=== PATIENT | male | born 1960 | race Hispanic/Latino ===

== ENCOUNTER 2017-07-31 10:28 | Inpatient (IN) | payer BC ==
[2017-07-31 10:34] VITALS: BMI 23.5
--- NOTE | 2017-07-31 10:34 | EDPD ---
HPI Stroke - General Time Seen by Provider: 07/31/17 10:33 - History of Present Illness Narrative History of Present Illness (Free Text): 07/31/17 10:35 57yoM, hx of myeloproliferative d/o with bone marrow transplant, swife states she isn't quite sure but feels since 7am - slurred speech and otherwise no n/v/ pulliam/dizziness/sob/chest pain/abdomen pain/loss of limb or bowel or bladder function. pt per had a fall prior to episode of speech change and she isn' t quite sure of head injury. 07/31/17 10:42 07/31/17 10:51 07/31/17 12:26 Onset:: This morning Timing: Currently Symptomatic Context: Sitting Associated Symptoms: Dysarthria Exacerbated by: Nothing Relieved by: Nothing rTPA Inclusion/Exclusion - Refusal of Treatment Patient Refused Treatment: No - Inclusion Criteria for Altepase Patient is 18 years or Older: Yes The Clinical Diagnosis of Ischemic Stroke That is Causing a Potentially Disabling Neurological Deficit: Yes Time of Onset is Well Established to be Less Than 270 Minute Before Treatment Would Begin: No Risk/Benefit Discussed With Patient/Family Member Present: Yes - Exclusion Criteria for Altepase Uncontrolled Hypertension at Time of Treatment (Systolic BP above 185 or Diastolic BP above 110 mmHg): Yes Known Bleeding Diathesis Including but Not Limited to: Platelets Below 100,000/ mm,PTT Above 40 sec After Heparin Use, Current Use of Oral Anitcoagulant With INR Greater Than 1.7 or PT Greater Than 15 secs: No Evidence of an Intracranial Hemorrhage: No Evidence of Major Acute Infarct With Signs Greater Than 1/3 MCA Territory: No Suspicion of Subarachnoid Hemorrhage on Pretreatment Evaluation Even if CT Head Negative For Hemorrhage: No Past Medical History - Provider Review Nursing Documentation Reviewed: Yes - Travel History Have you recently traveled outside [place] w/in the past 3 mons?: No - Infectious Disease Hx of Infectious Diseases: None - Cardiac Hx Cardiac Disorders: No - Pulmonary Hx Respiratory Disorders: No - Neurological Hx Neurological Disorder: No - HEENT Hx HEENT Disorder: No - Renal Hx Renal Disorder: No - Endocrine/Metabolic Hx Endocrine Disorders: No - Hematological/Oncological Hx Blood Disorders: No - Integumentary Hx Dermatological Disorder: No - Musculoskeletal/Rheumatological Hx Falls: No (12 yrs ago) - Gastrointestinal Other/Comment: 60 lb weight loss unintentional and intentional in 1 yr, started loosing weight unexplained about a yr ago then changed his eating habits and lost some more - Genitourinary/Gynecological Hx Genitourinary Disorders: No - Psychiatric Hx Substance Use: Yes (occasionally smokes pot) - Surgical History Hx Orthopedic Surgery: Yes (knee b/l) Other/Comment: at 16 yrs old pt had right knee sx for torn cartiladge and has nerve damage, at 42 yrs old shattered left knee in a fall has pins and plates - Anesthesia Hx Anesthesia: No Hx Anesthesia Reactions: No Hx Malignant Hyperthermia: No - Suicidal Assessment Feels Threatened In Home Enviroment: No Family/Social History - Family/Social History Family History: Non-Contributory Allergies/Home Meds Allergies/Adverse Reactions: Allergies No Known Allergies Allergy (Verified 08/08/14 23:27) Review of Systems - Review of Systems Constitutional: Normal Eyes: Normal ENT: Normal Respiratory: Normal Cardiovascular: Normal Gastrointestinal: Normal Genitourinary Male: Normal Musculoskeletal: Normal Skin: Normal Neurological: Speech Changes Endocrine: Normal Hemo/Lymphatic: Normal Psychiatric: Normal ED Stroke Physical Exam Vital Signs Reviewed: Yes Appearance: Positive for: Well-Appearing, Non-Toxic, Comfortable Pain Distress: None Mental Status: Positive for: Alert and Oriented X 3 - Systems Exam Head: Present: Atraumatic, Normocephalic Pupils: Present: PERRL Extroacular Muscles: Present: EOMI Conjunctiva: Present: Normal Ears: Present: Normal Mouth: Present: Moist Mucous Membranes Pharnyx: Present: Normal Nose (External): Present: Atraumatic Nose (Internal): Present: Normal Inspection Neck: Present: Normal Range of Motion Respiratory/Chest: Present: Clear to Auscultation, Good Air Exchange Cardiovascular: Present: Regular Rate and Rhythm Abdomen: No: Tenderness, Distention, Peritoneal Signs Back: Present: Normal Inspection Upper Extremity: Present: Normal Inspection Lower Extremity: Present: Normal Inspection Neurologic: Present: GCS=15, CN II-XII Intact, Speech Normal, Motor Func Grossly Intact Skin: Present: Warm, Normal Color Psychiatric: Present: Alert, Oriented x 3, Normal Insight, Normal Concentration Medical Decision Making ED Course and Treatment: Progress Notes: 57yoM, hx of myeloproliferative d/o with bone marrow transplant, swife states she isn't quite sure but feels since 7am - slurred speech and otherwise no n/v/ pulliam/dizziness/sob/chest pain/abdomen pain/loss of limb or bowel or bladder function. pt per had a fall prior to episode of speech change and she isn' t quite sure of head injury. 07/31/17 10:33 CODE STROKE ACTIVATED. 07/31/17 10:[address] Minor, who is aware and understands emergency department management plan. Waiting on CT results. 07/31/17 11:26 CT of Head reviewed by radiologist, shows: FINDINGS: HEMORRHAGE: No acute parenchymal, subarachnoid or extra-axial hemorrhage. BRAIN: Mild moderate chronic periventricular white matter ischemic changes. Additionally, there are a few scattered chronic bilateral basal nuclei lacunar type infarcts. Note that the possibility of a small hyperacute infarct cannot be excluded on this exam. Moderate generalized volume loss. VENTRICLES: No obstructive hydrocephalus. CALVARIUM: Calvarium intact. PARANASAL SINUSES: Polypoid focus of mucosal thickening seen left maxillary antrum. . Minimal mucosal thickening noted within a few ethmoid air cells. MASTOID AIR CELLS: Unremarkable as visualized. No inflammatory changes. OTHER FINDINGS: None. IMPRESSION: No acute intracranial hemorrhage. Mild moderate chronic white matter ischemic changes with scattered chronic bilateral basal nuclei lacunar type infarcts. Moderate generalized volume loss. 07/31/17 11:46 Chest X-ray reviewed by radiologist, shows: FINDINGS: LUNGS: Suspect minor bibasilar atelectasis PLEURA: No significant pleural effusion identified, no pneumothorax apparent. CARDIOVASCULAR: Normal. OSSEOUS STRUCTURES: No significant abnormalities. VISUALIZED UPPER ABDOMEN: Normal. OTHER FINDINGS: None. IMPRESSION: Suspect minor bibasilar atelectasis. 07/31/17 11:55 patient now stated the onset of symptoms was possibly at 7am. d/w Dr. Minor who stated to hold of on TPa at this time and to admit to telemetry, cta head/ neck, mri brain without contrast, echo and she will come and evaluate patient. 07/31/17 12:27 patient per is now speaking a little more clearer. d/w Dr. Narayan who accepted the patient to telemetry and will order the echo. Reassessment Condition: Re-examined, Unchanged - Lab Interpretations I have reviewed the lab results: Yes - RAD Interpretation [employer] Professor: Radiologist - EKG Interpretation Interpreted by ED Physician: Yes (NSR, flipped t waves avr, v1) Type: 12 lead EKG NIHSS Scale ([place]) Time Performed: 10:40 - How Severe is the Stoke Baseline Level of Consciousness: 0=Alert LOC to Questions: 0=Both comments correct LOC to commands: 0=Obeys both correctly Best Gaze: 0=Normal Visual: 0=No visual loss Facial: 0=Normal Motor Arm - Left: 0=No drift Motor Arm - Right: 0=No drift Motor Leg - Left: 0=No drift Motor Leg - Right: 0=No drift Limb Ataxia: 0=Absent Sensory: 0=Normal Best Language: 0=No aphasia Dysarthia: 1=Mild to moderate slurring Extinction & Inattention (Neglect): 0=Normal, no object (per pt and his inability to hold either leg up is longstanding prior to today's symptoms) Score: 1 Risk Level: Minor Stroke Risk Disposition/Present on Arrival - Present on Arrival Any Indicators Present on Arrival: No History of DVT/PE: No History of Uncontrolled Diabetes: No Urinary Catheter: No History Surgical Site Infection Following: None - Disposition Have Diagnosis and Disposition been Completed?: Yes Diagnosis: Slurred speech Disposition: HOSPITALIZED Disposition Time: 12:29 Patient Plan: Admission, Telemetry Patient Problems: Current Active Problems Problem Status Onset Slurred speech Acute Condition: IMPROVED
[2017-07-31 10:58] LABS: EOS % 0.4 % (1.5-5.0); GRAN # 4.04 (1.4-6.5); GRAN % 79.6 % (50.0-68.0); HEMOGLOBIN 12.8 g/dL (14.0-18.0); LYMPH # 0.5 (1.2-3.4); LYMPH % 10.6 % (22.0-35.0); MEAN CORPUSCULAR HEMOGLOBIN 30.9 pg (25.0-35.0); MEAN CORPUSCULAR HGB CONC 33.2 g/dl (31.0-37.0); MEAN PLATELET VOLUME 9.2 fl (7.0-11.0); MONO # 0.5 (0.1-0.6); MONO % 9.4 % (1.0-6.0); RBC 4.14 10^6/uL (3.5-6.1); RED CELL DISTRIBUTION WIDTH 15.5 % (11.5-14.5); WHITE BLOOD COUNT 5.1 10^3/ul (4.5-11.0)
[2017-07-31] MEDS ORDERED: WATER FOR INJECTION IV ONE (11:00)
[2017-07-31] MEDS ORDERED: ALTEPLASE IV ONE (11:00)
[2017-07-31 11:02] LABS: INR 0.91 (0.93-1.08); PARTIAL THROMBOPLASTIN TIME 23.4 Seconds (25.1-36.5); PROTHROMBIN TIME 10.4 SECONDS (9.4-12.5)
[2017-07-31 11:04] LABS: ALB/GLOB RATIO 1.7 (1.1-1.8); ALBUMIN 3.8 g/dL (3.0-4.8); ALT/SGPT 40 U/L (7-56); AST/SGOT 25 U/L (17-59); BLOOD UREA NITROGEN 26 mg/dL (7-21); CALCIUM 8.7 mg/dL (8.4-10.5); GFR AFRICAN-AMERICAN > 60; GFR NON-AFRICAN AMERICAN > 60
--- NOTE | 2017-07-31 11:13 | CT ---
PROCEDURE: CT HEAD WITHOUT CONTRAST. HISTORY: Slurred speech COMPARISON: No prior study available comparison TECHNIQUE: Axial computed tomography images were obtained through the head/brain without intravenous contrast. Radiation dose: Total exam DLP = 1041.73 mGy-cm. This CT exam was performed using one or more of the following dose reduction techniques: Automated exposure control, adjustment of the mA and/or kV according to patient size, and/or use of iterative reconstruction technique. FINDINGS: HEMORRHAGE: No acute parenchymal, subarachnoid or extra-axial hemorrhage. BRAIN: Mild moderate chronic periventricular white matter ischemic changes. Additionally, there are a few scattered chronic bilateral basal nuclei lacunar type infarcts. Note that the possibility of a small hyperacute infarct cannot be excluded on this exam. Moderate generalized volume loss. VENTRICLES: No obstructive hydrocephalus. CALVARIUM: Calvarium intact. PARANASAL SINUSES: Polypoid focus of mucosal thickening seen left maxillary antrum. . Minimal mucosal thickening noted within a few ethmoid air cells. MASTOID AIR CELLS: Unremarkable as visualized. No inflammatory changes. OTHER FINDINGS: None. IMPRESSION: No acute intracranial hemorrhage. Mild moderate chronic white matter ischemic changes with scattered chronic bilateral basal nuclei lacunar type infarcts. Moderate generalized volume loss. Note that these findings with discussed with Dr. Kaminski at approximately 11:10 a.m. with written down and read back verification.
[2017-07-31 11:15] LABS: TROPONIN I < 0.01 ng/mL
--- NOTE | 2017-07-31 11:39 | RAD ---
HISTORY: slurred COMPARISON: Comparison made with prior study 05/19/2016. FINDINGS: LUNGS: Suspect minor bibasilar atelectasis PLEURA: No significant pleural effusion identified, no pneumothorax apparent. CARDIOVASCULAR: Normal. OSSEOUS STRUCTURES: No significant abnormalities. VISUALIZED UPPER ABDOMEN: Normal. OTHER FINDINGS: None. IMPRESSION: Suspect minor bibasilar atelectasis.
[2017-07-31] MEDS: Sodium Chloride 0.9% 1,000 ML IV SCH ×2 (13:03→23:35)
--- NOTE | 2017-07-31 13:33 | CP.PCM.HP ---
<Mimi Kraus - Last Filed: 07/31/17 14:51> History of Present Illness - History of Present Illness History of Present Illness: CC: Fall and slurred speech Patient is a 57 y/o with PMHx of myolofibrosis s/p bone marrow transplant 2015, on prednisone, complicated by lung infection ( photopheresis biweekly at [facility]), HTN, IDDM ( 2nd to prednsione), Thrombocytopenia, BPH, COPD, insomnia, depression, left femur and knee surgeries, right knee surgery, uses a cane and walker to ambulate presented s/p fall at home and slurred speech. As per patient's patient fell on the restroom, had urine incontinent, no bowel incontinent. Patient states he had difficulty getting up from the floor, states he remembered the event. As per patient's , patient was confused, had slurred speech, sounded like he was drunk, and thinks the event might have occurred at 7 am. On arrival to the ED, code stroke was called, neurologist was contacted, TPA was not giving due to the timing. In addition, patient states for the past few weeks, he has been feeling drowsy. Is mostly sedentary. Patient and thinks patient might have taking extra meds last night and this morning, took 2 tabs of 10 mg Ambien and 2 tabs 2 mg of Dilaudid. Patient has experienced multiple falls prior, with fracture of the femur in May 2016. Patient states he has baseline weakness of the lower extremities, left worst than right. Patient currently complaining of left sided abdominal pain, denies nausea, vomiting or diarrhea. No fever or chills, no cough, no cp or sob. No dysurea. Heme/Onc: Dr Basilia Jhaveri at [facility]: [facility] on and mail order PMHx: as stated above PSHx: Left hip ORIF may 2016, roger knees surgery 13 years ago, bone marrow transplant may 2015. FMHx: was adopted Social: former tobacco, denies alcohol, admits to use marijuana edibles, Dilaudid prescribed by oncologist. Lived with and daughter, ambulates with cane and walker. Allergy: NKDA Home meds: valtrex, penicillin, macrobid and posaconazole listed on patient's meds list, however no dosages and couldn't confirm with the pharmacy. Present on Admission - Present on Admission Any Indicators Present on Admission: No History of DVT/PE: No History of Uncontrolled Diabetes: No Urinary Catheter: No Decubitus Ulcer Present: No Review of Systems - Review of Systems All systems: reviewed and no additional remarkable complaints except Review of Systems: 12 Point ROS reviewed, all negative as per HPI. Past Patient History - Infectious Disease Hx of Infectious Diseases: None - Tetanus Immunizations Tetanus Immunization: Unknown - Past Medical History & Family History Past Medical History?: Yes - Past Social History Smoking Status: Former Smoker Alcohol: None Drugs: Cannabis Home Situation {Lives}: With Family - CARDIAC Hx Cardiac Disorders: No - PULMONARY Hx Respiratory Disorders: No - NEUROLOGICAL Hx Neurological Disorder: No - HEENT Hx HEENT Problems: No - RENAL Hx Chronic Kidney Disease: No - ENDOCRINE/METABOLIC Hx Endocrine Disorders: No - HEMATOLOGICAL/ONCOLOGICAL Hx Blood Disorders: No - INTEGUMENTARY Hx Dermatological Problems: No - MUSCULOSKELETAL/RHEUMATOLOGICAL Hx Falls: No (12 yrs ago) - GASTROINTESTINAL Other/Comment: 60 lb weight loss unintentional and intentional in 1 yr, started loosing weight unexplained about a yr ago then changed his eating habits and lost some more - GENITOURINARY/GYNECOLOGICAL Hx Genitourinary Disorders: No - PSYCHIATRIC Hx Substance Use: Yes (occasionally smokes pot) - SURGICAL HISTORY Hx Orthopedic Surgery: Yes (knee b/l) Other/Comment: at 16 yrs old pt had right knee sx for torn cartiladge and has nerve damage, at 42 yrs old shattered left knee in a fall has pins and plates - ANESTHESIA Hx Anesthesia: No Hx Anesthesia Reactions: No Hx Malignant Hyperthermia: No Meds Allergies/Adverse Reactions: Allergies Allergy/AdvReac Type Severity Reaction Status Date / Time No Known Allergies Allergy Verified 08/08/14 23:27 Physical Exam - Constitutional Appears: No Acute Distress, Older Than Stated Age, Cachectic, Chronically Ill - Head Exam Head Exam: ATRAUMATIC, NORMAL INSPECTION, NORMOCEPHALIC - Eye Exam Eye Exam: EOMI, Normal appearance, PERRL. absent: Scleral icterus Pupil Exam: NORMAL ACCOMODATION - ENT Exam ENT Exam: Mucous Membranes Moist - Neck Exam Neck exam: Positive for: Normal Inspection - Respiratory Exam Respiratory Exam: Clear to Auscultation Bilateral, NORMAL BREATHING PATTERN. absent: Decreased Breath Sounds, Rales, Rhonchi, Wheezes, Respiratory Distress, Stridor - Cardiovascular Exam Cardiovascular Exam: REGULAR RHYTHM, RRR, +S1, +S2. absent: Bradycardia, Tachycardia, Diastolic murmur, Gallop, Irregular Rhythm, JVD, Rubs, Systolic Murmur - GI/Abdominal Exam GI & Abdominal Exam: Normal Bowel Sounds, Organomegaly (+ enlarged spleen.), Soft, Tenderness (right upper quadrants and lower quadrants. ). absent: Diminished Bowel Sounds, Distended, Firm, Guarding, Rebound, Rigid - Extremities Exam Extremities exam: Positive for: pedal pulses present. Negative for: joint swelling, pedal edema, tenderness - Back Exam Back exam: NORMAL INSPECTION. absent: paraspinal tenderness, rash noted, tenderness, vertebral tenderness - Neurological Exam Neurological exam: Alert Additional comments: + waxing and waning mentation, appears drowsy. No dysathria 3/4 motor strength in roger LE extremities, extremity sensation intact. 5/5 motor strength in extensor and flexor of the roger foot. No pronator drift, no negative babinski sign 5/5 upper extremities strength roger no facial droops, no tongue fasciculation, Pupil reactive to light, and equal. - Psychiatric Exam Psychiatric exam: Flat Affect - Skin Skin Exam: Abrasion, Rash (ecchymotic rash in the roger upper extremities, and left side of the abdomen. ), Warm Results - Vital Signs Recent Vital Signs: Last Vital Signs Temp 98 F 07/31/17 11:51 Pulse 78 07/31/17 11:51 Resp 19 07/31/17 11:51 BP 139/65 07/31/17 11:51 Pulse Ox 99 07/31/17 11:51 - Labs Result Diagrams: 07/31/17 10:50 07/31/17 10:50 - EKG Data EKG Interpreted by: Myself EKG shows normal: Sinus rhythm Rate: Normal Assessment & Plan - Assessment and Plan (Free Text) Assessment: Patient is a 57 y/o with pmh of myolofibrosis s/p bone marrow transplant 2016, on prednisone, complicated by lung infection, gets photopheresis biweekly at [facility], HTN, IDDM ( 2nd to prednsione), Thrombocytopenia, BPH, COPD, insomnia, depression, left femur and knee surgeries, right knee surgery presenting s/p fall and found to have dysarthria, code stroke called, patient was out of window for TPA. Plan: 1) Fall r/o syncope versus acute CVA versus mechanical fall Likely due to poly-pharmacy, narcotics and Ambien No hypoglycemia on admission - Patient was not a candidate for TPA, - CT head with old lacunar infarct - MRI of the brain, CTA of the head and neck ordered as per neuro - s/p loading dose of asa, will continue 81 mg asa. - will check lipid panel, and start Lipitor - will hold Ambien, use trazodone prn - Resume Dilaudid prn, hold for lethargy - Neuro check, fall precaution - head of bed above 30 degrees - PT/OT - On tele, r/o arrhythmias - Drug screen, and alcohol level. 2) Abdominal pain likely due to splenomegaly and constipation - No diverticulitis on CT - No obstruction - Will start miralax. 3) Chronic thrombocytopenia- plt stable, will continue to monitor 4) Chronic normocytic anemia- h/h stable, will monitor 5) COPD- will resume duoneb, mucomyst, pulmocort, and singulair. 6) BPH- resume flomax. 7) Chronic pain syndrome- called pharmacy to verify, patient takes 2 mg of Dilaudid q6 hr prn , will resume Dilaudid prn, hold for lethargy - Patient is also on meloxicam. 8) Myolofibrosis s/p bone marrow transplant- on chronic prednisone 20 mg daily, also on gerd. Due for photopheresis this Tuesday. 9) Insomnia and depression- hold Ambien, and resume lexapro. 10) IDDM- will resume levemir and humalog ISS, and fingerstick ACHS. 11) DVT prophylaxis: VTE device Patient seen, examined and case discussed with Dr Peter. - Date & Time Date: 07/31/17 Time: 14:25 <Lois Peter - Last Filed: 08/01/17 12:34> Results - Vital Signs Recent Vital Signs: Last Vital Signs Temp 97.8 F 08/01/17 11:51 Pulse 104 H 08/01/17 11:51 Resp 19 08/01/17 11:51 BP 154/111 H 08/01/17 11:51 Pulse Ox 95 08/01/17 06:00 - Labs Result Diagrams: 08/01/17 06:15 08/01/17 06:54 Labs: Laboratory Results - last 24 hr 07/31/17 07/31/17 07/31/17 13:45 13:45 13:45 WBC RBC Hgb Hct MCV MCH MCHC RDW Plt Count MPV Gran % Lymph % (Auto) Reagan % (Auto) Eos % (Auto) Baso % (Auto) Gran # Lymph # (Auto) Reagan # (Auto) Eos # (Auto) Baso # (Auto) Sodium Potassium Chloride Carbon Dioxide Anion Gap BUN Creatinine Est GFR ( Amer) Est GFR (Non-Af Amer) POC Glucose (mg/dL) Random Glucose Hemoglobin A1c 7.0 H Calcium Total Bilirubin AST ALT Alkaline Phosphatase Total Protein Albumin Globulin Albumin/Globulin Ratio Triglycerides 265 H Cholesterol 177 LDL Cholesterol Direct 92 HDL Cholesterol 45 TSH 3rd Generation 0.60 Urine Color Urine Appearance Urine pH Ur Specific [place] Urine Protein Urine Glucose (UA) Urine Ketones Urine Blood Urine Nitrate Urine Bilirubin Urine Urobilinogen Ur Leukocyte Esterase Urine Opiates Screen Urine Methadone Screen Ur Barbiturates Screen Ur Phencyclidine Scrn Ur Amphetamines Screen U Benzodiazepines Scrn U Oth Cocaine Metabols U Cannabinoids Screen Alcohol, Quantitative < 10 07/31/17 07/31/17 07/31/17 15:15 16:04 18:07 WBC RBC Hgb Hct MCV MCH MCHC RDW Plt Count MPV Gran % Lymph % (Auto) Reagan % (Auto) Eos % (Auto) Baso % (Auto) Gran # Lymph # (Auto) Reagan # (Auto) Eos # (Auto) Baso # (Auto) Sodium Potassium Chloride Carbon Dioxide Anion Gap BUN Creatinine Est GFR ( Amer) Est GFR (Non-Af Amer) POC Glucose (mg/dL) 125 H Random Glucose Hemoglobin A1c Calcium Total Bilirubin AST ALT Alkaline Phosphatase Total Protein Albumin Globulin Albumin/Globulin Ratio Triglycerides Cholesterol LDL Cholesterol Direct HDL Cholesterol TSH 3rd Generation Urine Color Yellow Urine Appearance Clear Urine pH 6.5 Ur Specific [place] 1.010 Urine Protein Negative Urine Glucose (UA) 100 H Urine Ketones Negative Urine Blood Negative Urine Nitrate Negative Urine Bilirubin Negative Urine Urobilinogen 0.2 Ur Leukocyte Esterase Negative Urine Opiates Screen Positive H Urine Methadone Screen Negative Ur Barbiturates Screen Negative Ur Phencyclidine Scrn Negative Ur Amphetamines Screen Negative U Benzodiazepines Scrn Negative U Oth Cocaine Metabols Negative U Cannabinoids Screen Positive H Alcohol, Quantitative 07/31/17 08/01/17 08/01/17 21:22 06:15 06:54 WBC 3.7 L D RBC 4.25 Hgb 13.0 L Hct 39.7 L MCV 93.4 MCH 30.6 MCHC 32.7 RDW 15.8 H Plt Count 102 L MPV 9.4 Gran % 73.1 H Lymph % (Auto) 14.5 L Reagan % (Auto) 11.6 H Eos % (Auto) 0.8 L Baso % (Auto) 0.0 Gran # 2.72 Lymph # (Auto) 0.5 L Reagan # (Auto) 0.4 Eos # (Auto) 0.0 Baso # (Auto) 0.00 Sodium 145 Potassium 3.7 Chloride 104 Carbon Dioxide 30 Anion Gap 15 BUN 12 Creatinine 0.8 Est GFR ( Amer) > 60 Est GFR (Non-Af Amer) > 60 POC Glucose (mg/dL) 124 H Random Glucose 96 Hemoglobin A1c Calcium 8.3 L Total Bilirubin 1.3 AST 25 ALT 37 Alkaline Phosphatase 68 Total Protein 5.5 L Albumin 3.4 Globulin 2.0 Albumin/Globulin Ratio 1.7 Triglycerides Cholesterol LDL Cholesterol Direct HDL Cholesterol TSH 3rd Generation Urine Color Urine Appearance Urine pH Ur Specific [place] Urine Protein Urine Glucose (UA) Urine Ketones Urine Blood Urine Nitrate Urine Bilirubin Urine Urobilinogen Ur Leukocyte Esterase Urine Opiates Screen Urine Methadone Screen Ur Barbiturates Screen Ur Phencyclidine Scrn Ur Amphetamines Screen U Benzodiazepines Scrn U Oth Cocaine Metabols U Cannabinoids Screen Alcohol, Quantitative 08/01/17 08/01/17 07:16 11:21 WBC RBC Hgb Hct MCV MCH MCHC RDW Plt Count MPV Gran % Lymph % (Auto) Reagan % (Auto) Eos % (Auto) Baso % (Auto) Gran # Lymph # (Auto) Reagan # (Auto) Eos # (Auto) Baso # (Auto) Sodium Potassium Chloride Carbon Dioxide Anion Gap BUN Creatinine Est GFR ( Amer) Est GFR (Non-Af Amer) POC Glucose (mg/dL) 92 156 H Random Glucose Hemoglobin A1c Calcium Total Bilirubin AST ALT Alkaline Phosphatase Total Protein Albumin Globulin Albumin/Globulin Ratio Triglycerides Cholesterol LDL Cholesterol Direct HDL Cholesterol TSH 3rd Generation Urine Color Urine Appearance Urine pH Ur Specific [place] Urine Protein Urine Glucose (UA) Urine Ketones Urine Blood Urine Nitrate Urine Bilirubin Urine Urobilinogen Ur Leukocyte Esterase Urine Opiates Screen Urine Methadone Screen Ur Barbiturates Screen Ur Phencyclidine Scrn Ur Amphetamines Screen U Benzodiazepines Scrn U Oth Cocaine Metabols U Cannabinoids Screen Alcohol, Quantitative Attending/Attestation - Attestation I have personally seen and examined this patient.: Yes I have fully participated in the care of the patient.: Yes I have reviewed all pertinent clinical information: Yes Notes (Text): 08/01/17 12:30 Medical record note made by the resident after discussion with my direction and input after the patient was personally seen and examined by me. I have reviewed the chart and agree that the record accurately reflects by personal performance of the history, physical exam, data review, and medical decision-making, in the course for the patient. I have also personally directed the plan of care. 57 yrs old male with PMHx of myolofibrosis s/p bone marrow transplant 2016, on prednisone, complicated by lung infection ( photopheresis biweekly at [facility] ), HTN, IDDM ( 2nd to prednsione), Thrombocytopenia, BPH, COPD, insomnia, depression, left femur and knee surgeries, right knee surgery, uses a cane and walker to ambulate presented s/p fall at home and slurred speech?, there is no new focal deficit on physical examination.Patient speech is normal.Patient CT scan of head showed old lacunar infarct , MRI of [place] is negative for acute stroke.CTA of head and neck is negative for any significant stenosis.Patient fall is likely due to medications.We will monitor patient in telemetry, will monitor neuro check. We will also get physical therapy. Management plan was discussed in detail with patient. and family Education was provided.
--- NOTE | 2017-07-31 14:01 | CT ---
PROCEDURE: CT scan abdomen pelvis dated 07/31/2017. HISTORY: Abdominal pain. COMPARISON: Comparison made with prior CT scan chest abdomen pelvis 05/19/2016. TECHNIQUE: Contiguous helical/ transaxial images of the abdomen and pelvis. Oral contrast was administered. No IV contrast given. Coronal and Sagittal reformats generated. This CT exam was performed using one or more of the following dose reduction techniques: Automated exposure control, adjustment of the mA and/or kV according to patient size, and/or use of iterative reconstruction technique. Radiation dose: Total exam DLP = 850.48 mGy-cm. FINDINGS: LOWER THORAX: Appears to be some minor linear atelectasis and or scarring in the left lingular regions extending from the pleural reflection between the heart and anterior pleural surface. . . . No evidence of effusion or basilar pneumothorax. There is a small hiatal hernia with slight wall thickening of the distal esophagus likely due to protrusion of gastric mucosa. LIVER: Liver exhibits relatively normal size measuring over 17 cm in CC dimension. No obvious hepatic mass or collection seen on this noncontrast study. GALLBLADDER AND BILE DUCTS: Gallbladder physiologically distended. No evidence of intraluminal gallbladder calculi. PANCREAS: Pancreas is slightly atrophic and fatty replaced. No pancreatic masses collections or calcifications. No significant pancreatic ductal dilatation. SPLEEN: Spleen is enlarged measuring over 15 cm in CC dimension. No obvious splenic masses or collections. ADRENALS: No adrenal lesions. KIDNEYS AND URETERS: Kidneys demonstrate relatively symmetric size. . No stone or hydronephrosis. BLADDER: Urinary bladder is physiologically distended. No evidence of intraluminal urinary bladder calculi. REPRODUCTIVE: Prostate gland measures approximately 4.6 cm in transverse dimension. Prostatic calcifications are present. APPENDIX: Normal-appearing appendix best seen on axial image number [id number]. No periappendiceal inflammatory changes. BOWEL: Evaluation of the bowel is limited due to the lack of oral contrast material. The stomach is incompletely distended. Visualized loops of small bowel exhibit normal contour and caliber. No evidence of acute mechanical small bowel obstruction. Stool and air seen throughout the large bowel with a moderate amount of stool in the cecum and at ascending colon and to a lesser degree transverse colon consistent with mild fecal retention/ constipation. There are few scattered colonic diverticula seen along the descending and sigmoid colon. No radiographic evidence acute diverticulitis. PERITONEUM: Unremarkable. No fluid collection. No free air. LYMPH NODES: Unremarkable. No enlarged lymph nodes. VASCULATURE: Unremarkable. No aortic aneurysm. BONES: Multilevel chronic anterior wedge compression fractures involving the visualized T9 through the L5 segments multilevel degenerative spondylosis. ORIF changes left femoral neck. OTHER FINDINGS: None. IMPRESSION: Splenomegaly. Findings consistent with mild constipation.
[2017-07-31 14:05] LABS: HDL CHOLESTEROL 45 mg/dL (29-60)
--- NOTE | 2017-07-31 14:11 | CT ---
PROCEDURE: CT Angiography of the neck and brain dated 07/31/2017 HISTORY: As per Dr. Minor - 57yoM, with slurred speech. COMPARISON: Comparison made with prior noncontrast CT scan brain and concurrent MRI brain. TECHNIQUE: Contiguous helical/ transaxial images of the neck and brain were obtained from the level of the skull-base to the superior mediastinum in the arteriographic phase of enhancement. Coronal and sagittal reformats or also generated. IV contrast dose: 150 cc Omnipaque 350 contrast material Radiation Dose - DLP: 663.17 mGy-cm This CT exam was performed using one or more of the following dose reduction techniques: Automated exposure control, adjustment of the mA and/or kV according to patient size, and/or use of iterative reconstruction technique. . FINDINGS: The aortic arch is widely patent without significant atherosclerotic plaque. The origins of the great vessels are also widely patent. The common carotid arteries and carotid bifurcations are widely patent without evidence of significant atherosclerotic plaque. No evidence of dissection. The distal right common carotid artery and carotid bifurcation and proximal aspect right internal carotid artery exhibit a short retropharyngeal course. The distal internal carotid arteries including the petrous cavernous and supraclinoid segments widely patent. The vertebral arteries are patent throughout. The vertebral arteries are relatively symmetric in caliber. Basilar artery also patent. . Major branches of the [place] of [place] are patent though there is some minimal asymmetry of the A1 segments right-sided which is slightly larger in caliber/more dominant than the left. The visualized distal anterior middle and posterior cerebral artery branches are patent and symmetric. No evidence of large aneurysm nor vascular malformation. . IMPRESSION: Unremarkable MRA of the neck and brain. Note made of an anatomically important finding of short retropharyngeal course of the distal common carotid artery, carotid bifurcation and proximal internal carotid artery.
[2017-07-31] MEDS ORDERED: Albuterol HFA 90 mcg/actuation (8 g) INH SCH (14:15)
[2017-07-31] MEDS ORDERED: Albuterol 0.083% Inhal Sol (2.5 mg/3 mL) UD IH PRN (14:25)
[2017-07-31 14:39] LABS: LDL CHOLESTEROL 92 mg/dL (0-129)
--- NOTE | 2017-07-31 15:15 | CP.PCM.CON ---
History of Present Illness - History of Present Illness History of Present Illness: 57 yr old male who came in as code stroke for dysarthria since 7 am, but was not deemed to be a tpa candidate. chronically takes ambien and dilaudid to sleep and has sleep deprivation for about 4 days. He is back to baseline on exam. Past Patient History - Infectious Disease Hx of Infectious Diseases: None - Tetanus Immunizations Tetanus Immunization: Unknown - Past Medical History & Family History Past Medical History?: Yes - Past Social History Smoking Status: Former Smoker Alcohol: None Drugs: Cannabis Home Situation {Lives}: With Family - CARDIAC Hx Cardiac Disorders: No - PULMONARY Hx Respiratory Disorders: No - NEUROLOGICAL Hx Neurological Disorder: No - HEENT Hx HEENT Problems: No - RENAL Hx Chronic Kidney Disease: No - ENDOCRINE/METABOLIC Hx Endocrine Disorders: No - HEMATOLOGICAL/ONCOLOGICAL Hx Blood Disorders: No - INTEGUMENTARY Hx Dermatological Problems: No - MUSCULOSKELETAL/RHEUMATOLOGICAL Hx Falls: No (12 yrs ago) - GASTROINTESTINAL Other/Comment: 60 lb weight loss unintentional and intentional in 1 yr, started loosing weight unexplained about a yr ago then changed his eating habits and lost some more - GENITOURINARY/GYNECOLOGICAL Hx Genitourinary Disorders: No - PSYCHIATRIC Hx Substance Use: Yes (occasionally smokes pot) - SURGICAL HISTORY Hx Orthopedic Surgery: Yes (knee b/l) Other/Comment: at 16 yrs old pt had right knee sx for torn cartiladge and has nerve damage, at 42 yrs old shattered left knee in a fall has pins and plates - ANESTHESIA Hx Anesthesia: No Hx Anesthesia Reactions: No Hx Malignant Hyperthermia: No Meds Allergies/Adverse Reactions: Allergies Allergy/AdvReac Type Severity Reaction Status Date / Time No Known Allergies Allergy Verified 08/08/14 23:27 - Medications Medications: Current Medications Acetylcysteine (Acetylcysteine 20%) 4 ml IH BIDRESP VIOLET Albuterol/Ipratropium (Duoneb 3 Mg/0.5 Mg (3 Ml) Ud) 3 ml IH [id number] VIOLET Arformoterol Tartrate (Brovana) 15 mcg IH [id number] VIOLET Aspirin (Aspirin Chewable) 81 mg PO DAILY VIOLET Budesonide (Pulmicort Respules) 0.25 mg IH [id number] VIOLET Diltiazem HCl (Cardizem Cd) 120 mg PO DAILY VIOLET Escitalopram Oxalate (Lexapro) 10 mg PO DAILY [facility] Hydromorphone HCl (Dilaudid) 2 mg PO Q6H PRN PRN Reason: Pain, severe (8-10) Sodium Chloride (Sodium Chloride 0.9%) 1,000 mls @ 100 mls/hr IV .Q10H [facility] Last Admin: 07/31/17 13:03 Dose: 100 mls/hr Insulin Detemir (Levemir) 10 unit SC HS VIOLET Insulin Human Lispro (Humalog) 12 units SC AC VIOLET Insulin Human Lispro (Humalog Low) 0 units SC ACHS VIOLET PRN Reason: Protocol Meloxicam (Mobic) 15 mg PO DAILY [facility] Montelukast Sodium (Singulair) 10 mg PO DAILY [facility] Pantoprazole Sodium (Protonix Ec Tab) 40 mg PO DAILY [facility] Polyethylene Glycol (Miralax) 17 gm PO BID [facility] Prednisone (Prednisone Tab) 20 mg PO DAILY [facility] Tamsulosin HCl (Flomax) 0.4 mg PO DAILY [facility] Results - Vital Signs Recent Vital Signs: Last Vital Signs Temp 98 F 07/31/17 14:40 Pulse 86 07/31/17 14:40 Resp 20 07/31/17 14:40 BP 132/73 07/31/17 14:40 Pulse Ox 98 07/31/17 14:40 - Labs Result Diagrams: 07/31/17 10:50 07/31/17 10:50 Labs: Laboratory Results - last 24 hr 07/31/17 07/31/17 13:45 13:45 Triglycerides 265 H Cholesterol 177 LDL Cholesterol Direct 92 HDL Cholesterol 45 TSH 3rd Generation 0.60 Alcohol, Quantitative < 10
--- NOTE | 2017-07-31 15:31 | MRI ---
PROCEDURE: MRI BRAIN WITHOUT CONTRAST HISTORY: As per DR. Minor - 57yoM, w slurred speech COMPARISON: Comparison made with CT scan and CTA brain obtained earlier same day. TECHNIQUE: Multiplanar, multisequence MR images of the brain were obtained without intravenous contrast enhancement. . Note that this examination is quite limited by motion artifact Motion artifact. FINDINGS: HEMORRHAGE: No acute parenchymal, subarachnoid or extra-axial hemorrhage so far as can be seen PE. No evidence of hemosiderin deposition is identified on gradient echo weighted sequence. DWI: No evidence of an acute or early subacute infarction seen on diffusion imaging. . BRAIN PARENCHYMA: Mild moderate chronic periventricular white matter ischemic changes are seen extending peripherally into the deep and subcortical white matter both cerebral hemispheres. . Moderate generalized volume loss. VENTRICLES: No obstructive hydrocephalus. CRANIUM: Unremarkable. ORBITS: Grossly unremarkable. PARANASAL SINUSES/MASTOIDS: Re- demonstrated is a focal area polypoid like mucosal thickening left maxillary antrum VASCULAR SYSTEM: Visualized major vascular flow voids at skull base patent. OTHER FINDINGS: None. IMPRESSION: No evidence of acute intracranial hemorrhage or infarct. Mild to moderate chronic white matter ischemic changes. Moderate generalized volume loss.
[2017-07-31 15:35] LABS: PH,URINE 6.5 (4.7-8.0); URINE BILIRUBIN NEGATIVE (NEGATIVE); URINE BLOOD NEGATIVE (NEGATIVE); URINE GLUCOSE (UA) 100 mg/dL (NEGATIVE); URINE LEUKOCYTE ESTERASE NEGATIVE Leu/uL (NEGATIVE); URINE PROTEIN NEGATIVE mg/dL (<30 mg/dL); URINE UROBILINOGEN 0.2 E.U./dL (<1 E.U./dL)
[2017-07-31 15:36] LABS: URINE APPEARANCE CLEAR (CLEAR); URINE COLOR YELLOW (YELLOW)
[2017-07-31] MEDS: Insulin Lispro 1 UNITS/0.01 ML SC SCH (16:47)
[2017-07-31] MEDS: Insulin Lispro (humaLOG) LOW Coverage SC SCH ×2 (16:48→21:34)
[2017-07-31] MEDS: POLYETHYLENE GLYCOL 3350 17 GM/Dose PACKET PO SCH ×2 (16:48→17:06)
[2017-07-31] MEDS ORDERED: ACETYLCYSTEINE 20% NEB SCH (18:00)
[2017-07-31 18:44] LABS: BARBITURATES, UR NEGATIVE (NEGATIVE); BENZODIAZEPINES, UR NEGATIVE (NEGATIVE); OPIATES, UR POSITIVE (NEGATIVE); PHENCYCLIDINE, UR NEGATIVE (NEGATIVE)
[2017-07-31] MEDS ORDERED: Albuterol 0.083% Inhal Sol (2.5 mg/3 mL) UD IH SCH (20:00)
[2017-07-31] MEDS: Albuterol-Ipratrop 3 mg / 0.5 (3 ml) UD IH SCH (20:43)
[2017-07-31] MEDS: Arformoterol 15 mcg/2 ml Inh Sol IH SCH (20:43)
[2017-07-31] MEDS: Acetylcysteine 20% Inhal Soln (4ml) IH SCH (20:43)
[2017-07-31] MEDS: Budesonide 0.25 mg/2 ml Inhal Susp UD IH SCH (20:44)
[2017-07-31] MEDS ORDERED: Insulin Detemir 100 units/ml Vial (Levemir) SC SCH (22:00)
[2017-08-01] MEDS: Albuterol-Ipratrop 3 mg / 0.5 (3 ml) UD IH SCH ×3 (02:50→13:19)
[2017-08-01 06:16] VITALS: O2SAT 95
[2017-08-01] MEDS: Arformoterol 15 mcg/2 ml Inh Sol IH SCH (07:06)
[2017-08-01] MEDS: Budesonide 0.25 mg/2 ml Inhal Susp UD IH SCH (07:06)
[2017-08-01] MEDS: Acetylcysteine 20% Inhal Soln (4ml) IH SCH (07:07)
[2017-08-01 07:09] LABS: EOS % 0.8 % (1.5-5.0); GRAN # 2.72 (1.4-6.5); GRAN % 73.1 % (50.0-68.0); LYMPH # 0.5 (1.2-3.4); LYMPH % 14.5 % (22.0-35.0); MEAN CELL VOLUME 93.4 fl (80.0-105.0); MEAN CORPUSCULAR HEMOGLOBIN 30.6 pg (25.0-35.0); MEAN CORPUSCULAR HGB CONC 32.7 g/dl (31.0-37.0); MEAN PLATELET VOLUME 9.4 fl (7.0-11.0); MONO # 0.4 (0.1-0.6); MONO % 11.6 % (1.0-6.0); RBC 4.25 10^6/uL (3.5-6.1); RED CELL DISTRIBUTION WIDTH 15.8 % (11.5-14.5); WHITE BLOOD COUNT 3.7 10^3/ul (4.5-11.0)
[2017-08-01 07:22] LABS: ALB/GLOB RATIO 1.7 (1.1-1.8); ALBUMIN 3.4 g/dL (3.0-4.8); ALT/SGPT 37 U/L (7-56); AST/SGOT 25 U/L (17-59); BLOOD UREA NITROGEN 12 mg/dL (7-21); CALCIUM 8.3 mg/dL (8.4-10.5); GFR AFRICAN-AMERICAN > 60; GFR NON-AFRICAN AMERICAN > 60
[2017-08-01] MEDS: Insulin Lispro 1 UNITS/0.01 ML SC SCH ×3 (07:45→17:14)
[2017-08-01] MEDS: Insulin Lispro (humaLOG) LOW Coverage SC SCH ×3 (07:45→17:14)
--- NOTE | 2017-08-01 07:54 | CARD ---
APPROVED REPORT EKG Measurement Heart [id number] <Conclusion> Normal sinus rhythm Possible Left atrial enlargement
[2017-08-01] MEDS ORDERED: diltiaZEM 120 mg/24 Hours CD Cap PO SCH (10:00)
[2017-08-01] MEDS ORDERED: DILTIAZEM HCL 120 MG PO SCH (10:00)
[2017-08-01] MEDS ORDERED: Pantoprazole 40 mg EC Tab PO SCH (10:00)
[2017-08-01] MEDS: POLYETHYLENE GLYCOL 3350 17 GM/Dose PACKET PO SCH ×2 (11:20→17:27)
[2017-08-01 11:52] VITALS: RESP 19
--- NOTE | 2017-08-01 13:18 | CP.PCM.PN ---
Subjective - Date & Time of Evaluation Date of Evaluation: 08/01/17 Time of Evaluation: 08:00 - Subjective Subjective: Progress note: Dr. Peter Patient seen and examined at b Objective - Vital Signs/Intake and Output Vital Signs (last 24 hours): Temp Pulse Resp BP Pulse Ox 97.8 F 104 H 19 154/111 H 95 08/01/17 11:51 08/01/17 11:51 08/01/17 11:51 08/01/17 11:51 08/01/17 06:00 Intake and Output: 08/01/17 08/01/17 06:59 18:59 Intake Total 1300 Output Total 2950 Balance -1650 - Medications Medications: Current Medications Acetylcysteine (Acetylcysteine 20%) 4 ml IH BIDRESP [facility] Last Admin: 08/01/17 07:07 Dose: 4 ml Albuterol/Ipratropium (Duoneb 3 Mg/0.5 Mg (3 Ml) Ud) 3 ml IH [id number] [facility] Last Admin: 08/01/17 07:07 Dose: 3 ml Arformoterol Tartrate (Brovana) 15 mcg IH [id number] [facility] Last Admin: 08/01/17 07:06 Dose: 15 mcg Aspirin (Aspirin Chewable) 81 mg PO DAILY [facility] Last Admin: 08/01/17 11:19 Dose: 81 mg Atorvastatin Calcium (Lipitor) 20 mg PO DIN VIOLET Budesonide (Pulmicort Respules) 0.25 mg IH [id number] [facility] Last Admin: 08/01/17 07:06 Dose: 0.25 mg Diltiazem HCl (Cardizem Cd) 120 mg PO DAILY [facility] Last Admin: 08/01/17 11:19 Dose: 120 mg Escitalopram Oxalate (Lexapro) 10 mg PO DAILY [facility] Last Admin: 08/01/17 11:20 Dose: 10 mg Hydromorphone HCl (Dilaudid) 1 mg PO Q6H PRN PRN Reason: Pain, severe (8-10) Insulin Detemir (Levemir) 10 unit SC HS [facility] Last Admin: 07/31/17 21:34 Dose: Not Given Insulin Human Lispro (Humalog) 12 units SC AC [facility] Last Admin: 08/01/17 11:52 Dose: 12 units Insulin Human Lispro (Humalog Low) 0 units SC ACHS [facility] PRN Reason: Protocol Last Admin: 08/01/17 11:53 Dose: 1 units Meloxicam (Mobic) 15 mg PO DAILY [facility] Last Admin: 08/01/17 11:21 Dose: 15 mg Montelukast Sodium (Singulair) 10 mg PO DAILY [facility] Last Admin: 08/01/17 11:21 Dose: 10 mg Pantoprazole Sodium (Protonix Ec Tab) 40 mg PO DAILY [facility] Last Admin: 08/01/17 11:21 Dose: 40 mg Polyethylene Glycol (Miralax) 17 gm PO BID [facility] Last Admin: 08/01/17 11:20 Dose: 17 gm Prednisone (Prednisone Tab) 20 mg PO DAILY [facility] Last Admin: 08/01/17 11:21 Dose: 20 mg Tamsulosin HCl (Flomax) 0.4 mg PO DAILY [facility] Last Admin: 08/01/17 11:20 Dose: 0.4 mg - Labs Labs: 08/01/17 06:15 08/01/17 06:54 PT 10.4 SECONDS (9.4-12.5) 07/31/17 10:50 INR 0.91 (0.93-1.08) L 07/31/17 10:50 APTT 23.4 Seconds (25.1-36.5) L 07/31/17 10:50
--- NOTE | 2017-08-01 14:41 | CP.PCM.DIS ---
Provider - Provider Date of Admission: 07/31/17 12:30 Attending physician: Lois Peter MD Hospital Course - Lab Results Lab Results: Micro Results 07/31/17 15:15 Urine,Clean Catch Urine Culture - Final No Growth (<1,000 CFU/ML) Most Recent Lab Values WBC 3.7 10^3/ul (4.5-11.0) L D 08/01/17 06:15 RBC 4.25 10^6/uL (3.5-6.1) 08/01/17 06:15 Hgb 13.0 g/dL (14.0-18.0) L 08/01/17 06:15 Hct 39.7 % (42.0-52.0) L 08/01/17 06:15 MCV 93.4 fl (80.0-105.0) 08/01/17 06:15 MCH 30.6 pg (25.0-35.0) 08/01/17 06:15 MCHC 32.7 g/dl (31.0-37.0) 08/01/17 06:15 RDW 15.8 % (11.5-14.5) H 08/01/17 06:15 Plt Count 102 10^3/uL (120.0-450.0) L 08/01/17 06:15 MPV 9.4 fl (7.0-11.0) 08/01/17 06:15 Gran % 73.1 % (50.0-68.0) H 08/01/17 06:15 Lymph % (Auto) 14.5 % (22.0-35.0) L 08/01/17 06:15 [place] % (Auto) 11.6 % (1.0-6.0) H 08/01/17 06:15 Eos % (Auto) 0.8 % (1.5-5.0) L 08/01/17 06:15 Baso % (Auto) 0.0 % (0.0-3.0) 08/01/17 06:15 Gran # 2.72 (1.4-6.5) 08/01/17 06:15 Lymph # (Auto) 0.5 (1.2-3.4) L 08/01/17 06:15 [place] # (Auto) 0.4 (0.1-0.6) 08/01/17 06:15 Eos # (Auto) 0.0 (0.0-0.7) 08/01/17 06:15 Baso # (Auto) 0.00 K/mm3 (0.0-2.0) 08/01/17 06:15 PT 10.4 SECONDS (9.4-12.5) 07/31/17 10:50 INR 0.91 (0.93-1.08) L 07/31/17 10:50 APTT 23.4 Seconds (25.1-36.5) L 07/31/17 10:50 Sodium 145 mmol/L (132-148) 08/01/17 06:54 Potassium 3.7 mmol/L (3.6-5.0) 08/01/17 06:54 Chloride 104 mmol/L (98-107) 08/01/17 06:54 Carbon Dioxide 30 mmol/L (21-33) 08/01/17 06:54 Anion Gap 15 (10-20) 08/01/17 06:54 BUN 12 mg/dL (7-21) 08/01/17 06:54 Creatinine 0.8 mg/dl (0.8-1.5) 08/01/17 06:54 Est GFR ( Amer) > 60 08/01/17 06:54 Est GFR (Non-Af Amer) > 60 08/01/17 06:54 POC Glucose (mg/dL) 156 mg/dL (65-110) H 08/01/17 11:21 Random Glucose 96 mg/dL (70-110) 08/01/17 06:54 Hemoglobin A1c 7.0 % (4.2-6.5) H 07/31/17 13:45 Calcium 8.3 mg/dL (8.4-10.5) L 08/01/17 06:54 Magnesium 2.4 mg/dL (1.7-2.2) H 07/31/17 10:50 Total Bilirubin 1.3 mg/dL (0.2-1.3) 08/01/17 06:54 AST 25 U/L (17-59) 08/01/17 06:54 ALT 37 U/L (7-56) 08/01/17 06:54 Alkaline Phosphatase 68 U/L (38-126) 08/01/17 06:54 Lactate Dehydrogenase 708 U/L (333-699) H 07/31/17 10:50 Total Creatine Kinase < 20 U/L (35-230) L 07/31/17 10:50 Troponin I < 0.01 ng/mL 07/31/17 10:50 Total Protein 5.5 g/dL (5.8-8.3) L 08/01/17 06:54 Albumin 3.4 g/dL (3.0-4.8) 08/01/17 06:54 Globulin 2.0 gm/dL 08/01/17 06:54 Albumin/Globulin Ratio 1.7 (1.1-1.8) 08/01/17 06:54 Triglycerides 265 mg/dL (35-160) H 07/31/17 13:45 Cholesterol 177 mg/dL (130-200) 07/31/17 13:45 LDL Cholesterol Direct 92 mg/dL (0-129) 07/31/17 13:45 HDL Cholesterol 45 mg/dL (29-60) 07/31/17 13:45 TSH 3rd Generation 0.60 mIU/mL (0.46-4.68) 07/31/17 13:45 Urine Color Yellow (YELLOW) 07/31/17 15:15 Urine Appearance Clear (CLEAR) 07/31/17 15:15 Urine pH 6.5 (4.7-8.0) 07/31/17 15:15 Ur Specific [place] 1.010 (1.005-1.035) 07/31/17 15:15 Urine Protein Negative mg/dL (<30 mg/dL) 07/31/17 15:15 Urine Glucose (UA) 100 mg/dL (NEGATIVE) H 07/31/17 15:15 Urine Ketones Negative mg/dL (NEGATIVE) 07/31/17 15:15 Urine Blood Negative (NEGATIVE) 07/31/17 15:15 Urine Nitrate Negative (NEGATIVE) 07/31/17 15:15 Urine Bilirubin Negative (NEGATIVE) 07/31/17 15:15 Urine Urobilinogen 0.2 E.U./dL (<1 E.U./dL) 07/31/17 15:15 Ur Leukocyte Esterase Negative David/uL (NEGATIVE) 07/31/17 15:15 Urine Opiates Screen Positive (NEGATIVE) H 07/31/17 18:07 Urine Methadone Screen Negative (NEGATIVE) 07/31/17 18:07 Ur Barbiturates Screen Negative (NEGATIVE) 07/31/17 18:07 Ur Phencyclidine Scrn Negative (NEGATIVE) 07/31/17 18:07 Ur Amphetamines Screen Negative (NEGATIVE) 07/31/17 18:07 U Benzodiazepines Scrn Negative (NEGATIVE) 07/31/17 18:07 U Oth Cocaine Metabols Negative (NEGATIVE) 07/31/17 18:07 U Cannabinoids Screen Positive (NEGATIVE) H 07/31/17 18:07 Alcohol, Quantitative < 10 mg/dL (0-10) 07/31/17 13:45 Discharge Exam - Head Exam Head Exam: ATRAUMATIC, NORMAL INSPECTION, NORMOCEPHALIC Discharge Plan - Follow Up Plan Condition: IMPROVED Disposition: HOME/ ROUTINE Instructions: Back Pain (GEN) Additional Instructions: Please make sure to go to your appointment tomorrow Should your symptoms persist, worsen, or return please come to the ED immediately
[2017-08-01 18:23] VITALS: BP 141/91; PULSE 93; TEMP 98.1
== END 2017-08-01 20:04 | disposition home or self-care (01) | DRG 92 ==
LOC: ED 10:28 → ERH 12:30 → 2RNO 14:31
PROVIDERS: ADMIT Internal Medicine; ATTEND Internal Medicine
PROC: 3E0F7GC Introduction of Other Therapeutic Substance into Respiratory Tract, Via Natural or Artificial Opening (ICD-10-PCS; principal; 2017-07-31)
DX: R47.1 Dysarthria and anarthria (principal); Z94.81 Bone marrow transplant status; N40.0 Benign prostatic hyperplasia without lower urinary tract symptoms; E11.9 Type 2 diabetes mellitus without complications; I10 Essential (primary) hypertension; R29.6 Repeated falls; D69.6 Thrombocytopenia, unspecified; G89.4 Chronic pain syndrome; G47.00 Insomnia, unspecified; F32.9 Major depressive disorder, single episode, unspecified; F12.90 Cannabis use, unspecified, uncomplicated; J44.9 Chronic obstructive pulmonary disease, unspecified; D64.9 Anemia, unspecified; R32 Unspecified urinary incontinence; Z79.4 Long term (current) use of insulin; Z87.891 Personal history of nicotine dependence; Z91.81 History of falling